=== PATIENT | female | born 1960 | race Caucasian/White ===

== ENCOUNTER 2016-11-14 20:01 | Emergency (ER) | payer OTHER ==
[~2016-11-14] VITALS: Ht 160 cm; Wt 82.6 kg
[2016-11-14] MEDS ORDERED: NORVASC5 MG PO (20:27)
[2016-11-14 20:43] LABS: HEMATOCRIT 41.9 % (37.0-47.0); HEMOGLOBIN 14.2 gm/dL (12.0-15.0); MCH 30.2 pg (26.0-34.0); MCV 88.8 fL (80.0-100.0); PLATELET COUNT 218 thou/uL (150-400); RBC 4.72 mil/uL (4.20-5.00); RDW 13.5 % (10.5-14.5); WBC 6.4 thou/uL (4.0-11.0)
[2016-11-14 20:44] LABS: MANUAL DIFF YES
[2016-11-14 20:51] LABS: CALCIUM 8.9 mg/dL (8.5-10.1)
[2016-11-14 21:18] LABS: ABSOLUTE NEUTROPHILS 4.5 thou/uL (1.4-8.2); ANISOCYTOSIS 1+; ATYPICAL LYMPHS 2 %; TOTAL CELL COUNT 100
[2016-11-14] MEDS ORDERED: ACETAMINOPHEN-1 EAC1 PO (22:00)
[2016-11-14] MEDS ORDERED: ZOFRAN ODT4 MG PO (22:00)
[2016-11-14] MEDS ORDERED: LEVAQUIN 750 M750 MG PO (22:00)
[2016-11-14 22:09] VITALS: BP 116/71
== END 2016-11-14 22:29 | disposition home or self-care (01) ==
LOC: ER 20:01
PROVIDERS: Emergency Medicine
DX: J18.1 Lobar pneumonia, unspecified organism (principal); I10 Essential (primary) hypertension; F17.210 Nicotine dependence, cigarettes, uncomplicated; F10.99 Alcohol use, unspecified with unspecified alcohol-induced disorder; Z90.710 Acquired absence of both cervix and uterus